=== PATIENT | female | born 1950 | race Caucasian/White ===

== ENCOUNTER → 2016-11-09 | Outpatient (REF) | payer MEDICARE ==
[2016-11-09 11:39] LABS: MEAN CORPUSCULAR HEMOGLOBIN 30.7 pg (27.0-33.0); MEAN CORPUSCULAR HGB CONC 33.7 g/dl (32.0-36.5); MEAN CORPUSCULAR VOLUME 91.2 fl (80.0-96.0); RED CELL DISTRIBUTION WIDTH 13.6 % (11.5-14.5)
[2016-11-09 12:19] LABS: ALBUMIN/GLOBULIN RATIO 1.18 (1.00-1.93); ALKALINE PHOSPHATASE 98 U/L (45-117); ALT/SGPT 22 U/L (12-78); ANION GAP 10 MEQ/L (8-16); AST/SGOT 13 U/L (15-37); BILIRUBIN,TOTAL 0.8 MG/DL (0.2-1.0); BLOOD UREA NITROGEN 22 MG/DL (7-18); CALCIUM LEVEL 9.2 MG/DL (8.8-10.2); CARBON DIOXIDE LEVEL 27 MEQ/L (21-32); CHLORIDE LEVEL 103 MEQ/L (98-107); CHOLESTEROL LEVEL 218 MG/DL (<200); GLOMERULAR FILTRATION RATE > 60.0 (>45); GLUCOSE, FASTING 102 MG/DL (80-110); POTASSIUM SERUM 4.4 MEQ/L (3.5-5.1); SODIUM LEVEL 140 MEQ/L (136-145); TOTAL PROTEIN 7.4 GM/DL (6.4-8.2); TRIGLYCERIDES LEVEL 86 MG/DL (<150)
== END ==
LOC: M SFHCCLAY 08:44
PROVIDERS: ATTEND Nurse Practitioner
DX: K21.9 Gastro-esophageal reflux disease without esophagitis (principal); I15.9 Secondary hypertension, unspecified; E78.5 Hyperlipidemia, unspecified

== ENCOUNTER → 2017-10-11 | Outpatient (CLI) | payer MEDICARE | LOC: M WHC 07:45 | DX: Z12.31 Encounter for screening mammogram for malignant neoplasm of breast (principal) | CPT/HCPCS: 77067 ==

== ENCOUNTER → 2018-04-12 | Outpatient (REF) | payer MEDICARE ==
[2018-04-12 11:57] LABS: HEMATOCRIT 39.4 % (36.0-47.0); HEMOGLOBIN 12.7 g/dl (12.0-15.5); MEAN CORPUSCULAR HEMOGLOBIN 29.7 pg (27.0-33.0); MEAN CORPUSCULAR HGB CONC 32.2 g/dl (32.0-36.5); MEAN CORPUSCULAR VOLUME 92.3 fl (80.0-96.0); PLATELET COUNT, AUTOMATED 258 10^3/uL (150-450); RED BLOOD COUNT 4.27 10^6/uL (4.00-5.40); RED CELL DISTRIBUTION WIDTH 13.9 % (11.5-14.5); WHITE BLOOD COUNT 7.5 10^3/uL (4.0-10.0)
[2018-04-12 12:11] LABS: ALBUMIN 3.9 GM/DL (3.2-5.2); ALBUMIN/GLOBULIN RATIO 1.26 (1.00-1.93); ALKALINE PHOSPHATASE 92 U/L (45-117); ALT/SGPT 17 U/L (12-78); ANION GAP 7 MEQ/L (8-16); AST/SGOT 12 U/L (7-37); BILIRUBIN,TOTAL 0.5 MG/DL (0.2-1.0); BLOOD UREA NITROGEN 15 MG/DL (7-18); CARBON DIOXIDE LEVEL 28 MEQ/L (21-32); CHLORIDE LEVEL 107 MEQ/L (98-107); CHOLESTEROL LEVEL 189 MG/DL (<200); CHOLESTEROL RISK RATIO 2.739 (<5); CREATININE FOR GFR 0.78 MG/DL (0.55-1.30); GLOMERULAR FILTRATION RATE > 60.0 (>39); GLUCOSE, FASTING 95 MG/DL (70-100); HDL CHOLESTEROL 69 MG/DL (>40); LDL CHOLESTEROL 99 MG/DL (<100); NON-HDL-C 120 MG/DL; POTASSIUM SERUM 4.2 MEQ/L (3.5-5.1); SODIUM LEVEL 142 MEQ/L (136-145); TRIGLYCERIDES LEVEL 106 MG/DL (<150)
== END ==
LOC: M SFHCCLAY 08:08
DX: K21.9 Gastro-esophageal reflux disease without esophagitis (principal); E78.5 Hyperlipidemia, unspecified
CPT/HCPCS: 80053

== ENCOUNTER → 2018-10-25 | Outpatient (REF) | payer MEDICARE ==
[2018-10-25 12:40] LABS: BASO % 0.4 % (0.0-1.0); EOS # 0.1 10^3/uL (0.0-0.50); EOS % 1.6 % (0.0-3.0); HEMATOCRIT 40.2 % (36.0-47.0); LYMPH # 1.9 10^3/uL (1.5-4.5); LYMPH % 25.5 % (24.0-44.0); MEAN CORPUSCULAR HEMOGLOBIN 29.3 pg (27.0-33.0); MEAN CORPUSCULAR HGB CONC 32.3 g/dl (32.0-36.5); MEAN CORPUSCULAR VOLUME 90.5 fl (80.0-96.0); MONO # 0.6 10^3/uL (0.0-0.8); MONO % 8.4 % (0.0-5.0); NEUTROPHILS # 4.7 10^3/uL (1.8-7.7); NEUTROPHILS % 63.8 % (36.0-66.0); PLATELET COUNT, AUTOMATED 237 10^3/uL (150-450); RED BLOOD COUNT 4.44 10^6/uL (4.00-5.40); WHITE BLOOD COUNT 7.4 10^3/uL (4.0-10.0)
[2018-10-25 13:17] LABS: ALBUMIN 3.9 GM/DL (3.2-5.2); CALCIUM LEVEL 9.3 MG/DL (8.8-10.2); CHOLESTEROL RISK RATIO 2.617 (<5); FREE T4 1.1 NG/DL (0.76-1.46); GLOMERULAR FILTRATION RATE 58.4 (>39); POTASSIUM SERUM 4.3 MEQ/L (3.5-5.1); THYROID STIMULATING HORMONE 1.55 uIU/ML (0.358-3.740); TOTAL PROTEIN 7.6 GM/DL (6.4-8.2)
== END ==
LOC: M SFHCCLAY 08:19
PROVIDERS: ATTEND Nurse Practitioner Family
DX: E78.5 Hyperlipidemia, unspecified (principal); I10 Essential (primary) hypertension; G43.909 Migraine, unspecified, not intractable, without status migrainosus

== ENCOUNTER → 2019-05-02 | Outpatient (REF) | payer MEDICARE ==
[2019-05-02 16:54] LABS: BLOOD UREA NITROGEN 20 MG/DL (7-18); CALCIUM LEVEL 9.8 MG/DL (8.8-10.2); CARBON DIOXIDE LEVEL 30 MEQ/L (21-32); CHLORIDE LEVEL 105 MEQ/L (98-107); CREATININE FOR GFR 0.92 MG/DL (0.55-1.30); GLOMERULAR FILTRATION RATE > 60.0 (>39); GLUCOSE, FASTING 96 MG/DL (70-100); POTASSIUM SERUM 4.5 MEQ/L (3.5-5.1); SODIUM LEVEL 139 MEQ/L (136-145)
== END ==
LOC: M SFHCCLAY 09:09
PROVIDERS: ATTEND Family Medicine
DX: I11.9 Hypertensive heart disease without heart failure (principal)
CPT/HCPCS: 80048; G0463

== ENCOUNTER → 2019-11-28 | Outpatient (REF) | payer MEDICARE ==
[2019-11-28 14:07] LABS: ALT/SGPT 23 U/L (12-78); BILIRUBIN,TOTAL 0.8 MG/DL (0.2-1.0); BLOOD UREA NITROGEN 21 MG/DL (7-18); CALCIUM LEVEL 9.3 MG/DL (8.8-10.2); CARBON DIOXIDE LEVEL 26 MEQ/L (21-32); CHLORIDE LEVEL 106 MEQ/L (98-107); CHOLESTEROL LEVEL 172 MG/DL (<200); CHOLESTEROL RISK RATIO 2.687 (<5); CREATININE FOR GFR 0.82 MG/DL (0.55-1.30); FREE T4 1.02 NG/DL (0.76-1.46); GLOMERULAR FILTRATION RATE > 60.0 (>39); GLUCOSE, FASTING 105 MG/DL (70-100); HDL CHOLESTEROL 64 MG/DL (>40); LDL CHOLESTEROL 85 MG/DL (<100); NON-HDL-C 108 MG/DL; POTASSIUM SERUM 4.5 MEQ/L (3.5-5.1); SODIUM LEVEL 140 MEQ/L (136-145); TOTAL PROTEIN 7.3 GM/DL (6.4-8.2); TRIGLYCERIDES LEVEL 116 MG/DL (<150)
== END ==
LOC: M SFHCCLAY 07:56
PROVIDERS: ATTEND Nurse Practitioner Family
DX: I11.9 Hypertensive heart disease without heart failure (principal); K21.9 Gastro-esophageal reflux disease without esophagitis; E78.5 Hyperlipidemia, unspecified

== ENCOUNTER → 2019-12-31 | Outpatient (CLI) | payer MEDICARE ==
[~2019-12-31] MED LIST: ACET-897 PO; ASPI81CH33 PO; ASPI81TA86 PO; ATOR40TA75 PO; LISI-538 PO; ROXI1TAB2 PO; STROTAB3 PO; TAGA200T3 PO
--- NOTE | 2020-01-01 07:27 | REP ---
.BILATERAL MAMMOGRAM WITH 3D TOMOSYNTHESIS: No family history of breast cancer. [facility] lifetime risk of breast cancer 4.8%. COMPARISON: 10/11/2017, as well as other prior exams. MLO and CC views of both breasts performed. There is moderate fibroglandular tissue present throughout the left breast with mild scattered fibroglandular tissue throughout the right breast. On tomographic images, there appears to be a spiculated nodule laterally and somewhat inferiorly, slightly less than 1 cm in diameter. There is localized architectural distortion in that region. No other mass is seen bilaterally. No suspicious clusters of microcalcifications are seen. IMPRESSION: ACR 0, incomplete. Focal spiculated nodule and architectural distortion is suspected in the inferolateral left breast. Recommend spot compression views and ultrasound to further evaluate. BIRADS 0: BI-RADS/ACR category 0 mammogram, Incomplete: Need additional imaging evaluation and/or prior mammograms for comparison. This mammogram was interpreted with the aid of an FDA-approved computer-aided detection system. The patient states that she or he has not had a clinical breast exam in over a year. The patient letter being requested is M0.
== END ==
LOC: M WHC 12:52
PROVIDERS: ATTEND Nurse Practitioner Family
DX: N92.2 Excessive menstruation at puberty (principal)

== ENCOUNTER → 2020-02-11 | Outpatient (CLI) | payer MEDICARE ==
--- NOTE | 2020-03-20 13:15 | REP ---
DIGITAL DIAGNOSTIC LEFT BREAST MAMMOGRAM WITH CAD, 3D TOMOGRAPHY, AND FOCUSED LEFT BREAST SONOGRAPHY HISTORY: Screening mammogram 12/31/2019 was BI-RADS Category 0 because of an area of architectural distortion in the left lateral breast. Diagnostic imaging was recommended. COMPARISON: Prior mammography from 06/12/2018 and 12/07/2015. MAMMOGRAPHIC FINDINGS: Magnified focal spot compression CC, true medial lateral, and medial lateral oblique views of the left breast are obtained. In addition, an unmagnified true medial lateral view with tomography is obtained. These confirm the presence of a focal area of architectural distortion persisting in the left lateral breast at approximately 3 o'clock. Breast parenchyma is somewhat heterogeneously dense as previously noted. No mass lesion is visible. No microcalcification is observed. SONOGRAPHIC FINDINGS: Focused left breast sonography is performed in the left lateral breast at approximately 3 o'clock. A hypoechoic irregular spiculated mass lesion is seen in this location 3 cm from the nipple, which is felt to account for the architectural distortion. This measures 10 x 6 x 7 mm and has acoustic shadowing. It is taller than wide. It is considered suspicious. IMPRESSION: BI-RADS Category 4 suspicious left breast imaging. Ultrasound-guided needle biopsy with marker clip placement and post clip placement mammography recommended. This mammogram is interpreted with the aid of an FDA approved computer-aided detection system. PATIENT LETTER: Tayla. MAR
== END ==
LOC: M WHC 16:20
PROVIDERS: ATTEND Nurse Practitioner Family
DX: R92.2 Inconclusive mammogram (principal)
CPT/HCPCS: 76642; 77065; G0279

== ENCOUNTER → 2020-02-26 | Outpatient (CLI) | payer MEDICARE ==
[2020-02-26 16:44] VITALS: BP 138/78
--- NOTE | 2020-02-27 05:36 | ROOPDOC ---
[facility] Report Of Operation Report of Operation DATE OF PROCEDURE: 02/26/20 PREPROCEDURE DIAGNOSES: left breast suspicious lesion POSTPROCEDURE DIAGNOSES: same PROCEDURE: US guided left breast biopsy with clip placement SURGEON: Elizabeth Rabago MACHINE STUFFER: ANESTHESIA: local ESTIMATED BLOOD LOSS: minimal COMPLICATIONS: none REMARKS: post bx clip is seen in expected location DESCRIPTION OF PROCEDURE: Lidocaine 1% LOT [id number] Expiration 11/2022 Sodium Bicarbonate 8.4% LOT [id number] Expiration 11/2020 Hydromark clip LOT [id number] Expiration 10/2022 SHAPE 4 Bx device: BARD [id number] x10 cm LOT [id number] Expiration 10/2022 Informed consent was obtained. The most common risk and possible complications including bleeding, hematoma, bruising, infection, injury to surrounding structures were explained to the patient and she expressed understanding. Patient was placed on the bed in the supine position. Appropriate time out was done stating patients name, date of , and the procedure to be performed. The left breast was prepped and draped in the usual fashion. The ultrasound was used to confirm the location of the lesion in the left breast at 3:00. Plain Lidocaine 1% and 8.4% sodium bicarbonate 10:1 mix was used to anesthetize the skin, the biopsy site and tissues along the anticipated biopsy tract. Small skin incision was made with blade number 11. BARD Marquee 14G cannula with introducer ([id number]) was inserted through the incision and advanced under the ultrasound guidance to position immediately adjacent to the lesion. Next, the introducer was removed and BARD Marquee 14G biopsy device was places in the cannula. Pre-biopsy imaging, and post-biopsy imaging were captured. Five good core biopsies were taken at various levels of the lesion. Specimen was placed in formaldehyde, labeled with appropriate biopsy site and patients name, and sent to pathology for evaluation. Next, the biopsy device was withdrawn and a clip introducer was inserted into the biopsy site via the cannula. The SHAPE 4 Hydromark clip was deployed under sonographic guidance. Post-clip placement image was captured. Manual pressure over the biopsy cavity and tract was held after the clip introducer was withdrawn. No bleeding was noted upon removal of the pressure. Post-biopsy mammogram of the left breast was obtained and showed clip in expected position. Postprocedural dressing was placed. Patient tolerated procedure well. Discharge instructions were discussed with the patient and she expressed understanding. ELIZABETH RABAGO DO Feb 27, 2020 05:36
--- NOTE | 2020-03-24 13:44 | REP ---
POST-BIOPSY MAMMOGRAM, LEFT BREAST TECHNIQUE: Following ultrasound-guided biopsy of a spiculated solid nodule in the outer left breast, left breast mammogram is performed in the ML and CC projections. FINDINGS: The deployed biopsy clip is seen at the posterior margin of the spiculated nodule. MTDD
--- NOTE | 2020-03-24 13:45 | REP ---
ULTRASOUND GUIDANCE FOR LEFT BREAST BIOPSY TECHNIQUE: Ultrasound guidance was provided for Dr. Sotelo who performed ultrasound-guided biopsy of a spiculated nodule in the lateral left breast. FINDINGS: On the obtained images, the biopsy needle was seen within the suspicious nodule. Post-procedure images show a linear echogenic focus in the nodule likely representing the deployed biopsy clip. MAR
== END ==
LOC: M WHCPRO 14:38
PROVIDERS: ATTEND Surgery
DX: C50.512 Malignant neoplasm of lower-outer quadrant of left female breast (principal)

== ENCOUNTER → 2020-03-18 | Outpatient (CLI) | payer MEDICARE ==
[~2020-03-18] MED LIST changes: +PROHANCE 279.3MG/ML 15ML VIAL As Ordered ONE
--- NOTE | 2020-03-26 17:00 | REP ---
MRI OF THE BREASTS WITH AND WITHOUT CONTRAST HISTORY: Left breast cancer. COMPARISON: Mammogram 12/31/2019 and 02/11/2020. FINDINGS: MRI bilateral breasts performed in the axial, coronal, and sagittal planes prior to and following the intravenous administration of 14 mL ProHance. Images are evaluated in the [employer] software including dynamic post IV gadolinium axial T1 fat sat images, subtraction images, CAD images, color overlay images, and MIP reconstruction images. There is mild diffuse fibroglandular tissue in the right breast with a more moderate degree of fibroglandular tissue in the left breast. I do not see significant cystic change in either breast. Small intramammary lymph node is seen posterolaterally in the right breast. Normal size axillary lymph nodes are present bilaterally. In the left breast in the region of 3 oclock, the site of the biopsy proven cancer is noted with a biopsy clip surrounded by a tiny amount of fluid. The biopsy was performed 02/26/2020. On post contrast images, there is some mild persistent enhancement at this site. Otherwise there is no other evidence of an enhancing mass or morphologic abnormality in either breast. There is mild background parenchymal enhancement. IMPRESSION: BI-RADS category 6 known left breast cancer. Recent ultrasound guided biopsy of a lesion at the 3 oclock position left breast demonstrates a biopsy clip surrounded by a tiny amount of fluid at the 3 oclock position of the left breast. There is some mild persistent enhancement at that biopsy location. Otherwise there is no other evidence of suspicious enhancing mass or morphologic abnormality bilaterally. [facility]
== END ==
LOC: M RAD 12:15
PROVIDERS: ATTEND Surgery
DX: C50.912 Malignant neoplasm of unspecified site of left female breast (principal)
CPT/HCPCS: A9576; C8908

== ENCOUNTER → 2020-03-30 | Outpatient (CLI) | payer MEDICARE ==
[~2020-03-30] MED LIST changes: -PROHANCE 279.3MG/ML 15ML VIAL As Ordered ONE
--- NOTE | 2020-04-06 18:01 | REP ---
TWO-VIEW CHEST HISTORY: Hypertension. TECHNIQUE: Two views of the chest are performed. FINDINGS: No acute infiltrate. Lungs are clear. Heart is normal in size. Mediastinal silhouette is unremarkable. There are mild degenerative changes of the spine. IMPRESSION: No active pulmonary disease. MTDD
== END ==
LOC: M CLY 12:55
PROVIDERS: ATTEND Nurse Practitioner Family
DX: I10 Essential (primary) hypertension (principal); C50.919 Malignant neoplasm of unspecified site of unspecified female breast

== ENCOUNTER → 2020-03-30 | Outpatient (REF) | payer MEDICARE ==
[2020-03-30 16:13] LABS: BASO % 0.2 % (0.0-1.0); EOS # 0.1 10^3/uL (0.0-0.5); HEMATOCRIT 36.7 % (36.0-47.0); HEMOGLOBIN 11.6 g/dl (12.0-15.5); LYMPH # 2.3 10^3/uL (1.5-5.0); LYMPH % 23.6 % (24.0-44.0); MEAN CORPUSCULAR HEMOGLOBIN 29.4 pg (27.0-33.0); MEAN CORPUSCULAR HGB CONC 31.6 g/dl (32.0-36.5); MEAN CORPUSCULAR VOLUME 92.9 fl (80.0-96.0); MONO # 0.8 10^3/uL (0.0-0.8); MONO % 8.5 % (0.0-5.0); NEUTROPHILS # 6.5 10^3/uL (1.5-8.5); NEUTROPHILS % 65.8 % (36.0-66.0); PLATELET COUNT, AUTOMATED 239 10^3/uL (150-450); RED BLOOD COUNT 3.95 10^6/uL (4.00-5.40); WHITE BLOOD COUNT 9.9 10^3/uL (4.0-10.0)
[2020-03-30 16:41] LABS: ALT/SGPT 22 U/L (12-78); BILIRUBIN,TOTAL 0.5 MG/DL (0.2-1.0); BLOOD UREA NITROGEN 16 MG/DL (7-18); CALCIUM LEVEL 9.3 MG/DL (8.8-10.2); CARBON DIOXIDE LEVEL 31 MEQ/L (21-32); CHLORIDE LEVEL 107 MEQ/L (98-107); CREATININE FOR GFR 0.82 MG/DL (0.55-1.30); GLOMERULAR FILTRATION RATE > 60.0 (>39); GLUCOSE, FASTING 101 MG/DL (70-100); POTASSIUM SERUM 4.2 MEQ/L (3.5-5.1); SODIUM LEVEL 140 MEQ/L (136-145)
== END ==
LOC: M SFHCCLAY 12:49
PROVIDERS: ATTEND Nurse Practitioner Family
DX: C50.919 Malignant neoplasm of unspecified site of unspecified female breast (principal)

== ENCOUNTER → 2020-04-02 | Outpatient (CLI) | payer MEDICARE ==
[~2020-04-02] MED LIST changes: -ACET-897 PO; -ASPI81CH33 PO; +ATOR40TA75; -ATOR40TA75 PO; +LISI-538; -LISI-538 PO
== END ==
LOC: M LABSMTC 12:52
PROVIDERS: ATTEND Anesthesiology
DX: Z01.812 Encounter for preprocedural laboratory examination (principal); Z20.828 Contact with and (suspected) exposure to other viral communicable diseases
CPT/HCPCS: C9803; U0003

== ENCOUNTER 2020-04-07 06:08 | Day surgery (SDC) | payer MEDICARE ==
[~2020-04-07] VITALS: Ht 157.5 cm; Wt 69.4 kg
[~2020-04-07 06:08] MED LIST changes: -ATOR40TA75; +ATOR40TA75 PO; +HEPARIN SOD (PORCINE) 5000UNITS/ML 1ML VIAL/SYRINGE SQ ONE; -LISI-538; +LISI-538 PO; -ROXI1TAB2 PO
[2020-04-07] MEDS ORDERED: CLINDAMYCIN 900 MG in IV 1 EA IV ONE (07:00)
[2020-04-07] MEDS ORDERED: LR 1,000 ML IV ONE (07:00)
[2020-04-07] MEDS ORDERED: HEPARIN SOD (PORCINE) 5000UNITS/ML 1ML VIAL/SYRINGE SQ ONE (07:00)
[2020-04-07] MEDS ORDERED: LIDOCAINE 1% SDV 30ML VIAL As Ordered ONE (07:18)
[2020-04-07] MEDS ORDERED: BUPIVACAINE HCL 0.25% 30ML VIAL As Ordered ONE (07:18)
[2020-04-07] MEDS ORDERED: MIDAZOLAM INJ 2MG/2ML VIAL (J2250 PER 1MG) As Ordered ONE (07:22)
[2020-04-07] MEDS ORDERED: fentaNYL 250 MCG/5 ML INJECTION (J3010) As Ordered ONE (07:22)
[2020-04-07] MEDS ORDERED: propofoL 200 MG/20 ML VIAL As Ordered ONE ×2 (07:22→07:23)
[2020-04-07] MEDS ORDERED: LIDOCAINE 2% 100MG/5ML SDV (FOR ANES.) As Ordered ONE (07:22)
[2020-04-07] MEDS ORDERED: dexameTHASONE 4 MG/ML 1ML VIAL (J1100 PER 1MG) As Ordered ONE (07:22)
[2020-04-07] MEDS ORDERED: ONDANSETRON 4MG/2ML VIAL As Ordered ONE (07:23)
[2020-04-07] MEDS ORDERED: ROCURONIUM BROMIDE 50 MG/5 ML VIAL As Ordered ONE (09:44)
[2020-04-07] MEDS ORDERED: SUCCINYLCHOLINE 100 MG/5 ML SYRINGE (J0330) As Ordered ONE (09:59)
[2020-04-07] MEDS ORDERED: PHENYLephrine HCL 500 MCG/5 ML (100MCG/ML) SYRINGE (J2370) As Ordered ONE (10:28)
[2020-04-07] MEDS ORDERED: ePHEDrine SULFATE 25 MG/5 ML(5MG/ML) SYRINGE As Ordered ONE (10:30)
[2020-04-07] MEDS ORDERED: ACETAMINOPHEN 1000MG 100ML IV BTL (OFIRMEV) (J0131 PER 10MG) As Ordered ONE (12:46)
[2020-04-07] MEDS ORDERED: ONDANSETRON 4MG/2ML VIAL IV PRN (14:00)
[2020-04-07] MEDS ORDERED: oxyCODONE 5MG TAB PO PRN (14:00)
[2020-04-07] MEDS ORDERED: LR 1,000 ML IV SCH (14:00)
[2020-04-07] MEDS ORDERED: HYDROMORPHONE HCL 0.5 MG/ 0.5 ML SYRINGE (J1170 PER 1) IV PRN (14:00)
[2020-04-07] MEDS ORDERED: fentaNYL 100 MCG/2 ML INJECTION (J3010) IV PRN (14:00)
--- NOTE | 2020-04-07 14:13 | POST-OPPD ---
Postoperative Procedure Note Date Of Procedure: Apr 07, 2020 PREOPERATIVE DIAGNOSIS: left breast cancer POSTOPERATIVE DIAGNOSIS: same FINDINGS: clip and the wire were identified in the specimen, 5 sln identified PROCEDURE: left lumpectomy and left SLNBx SURGEON: Augie Rabago ANESTHESIA: general SPECIMENS: left lumpectomy, left lumpectomy margins (deep, inferior, superior, medial, lateral), left axillary lymph nodes #1, #2,#3, #4,#5 ESTIMATED BLOOD LOSS: 5 cc DRAINS: none COMPLICATIONS: none POSTOPERATIVE CONDITION: stable ELIZABETH RABAGO DO Apr 07, 2020 14:13
[2020-04-07] MEDS ORDERED: ROXI1TAB2 PO (14:20)
[2020-04-07 15:50] VITALS: BP 149/71
--- NOTE | 2020-04-07 20:47 | ROOPDOC ---
[facility] Report Of Operation Report of Operation DATE OF PROCEDURE: 04/07/20 PREPROCEDURE DIAGNOSES: left breast cancer POSTPROCEDURE DIAGNOSES: left breast cancer PROCEDURE: Left lumpectomy with ultrasound guided intraop wire placement, left sentinel lymph node biopsy, radiography of the specimen SURGEON: Elizabeth Rabago ANESTHESIA: general ESTIMATED BLOOD LOSS: Approximately 5 mL. COMPLICATIONS: none REMARKS: clip, wire and mass seen on radiography DESCRIPTION OF PROCEDURE: INDICATIONS: Ms. Sandy is a 70-year-old woman who was found to have a suspicious left breast lesion on screening mammogram. This was evaluated with US and sonographic correlate was found. US guided biopsy of the lesion came back as IDC, ER +, OH +, HER-2 negative, grade 2. She opted for breast conservative surgery with sentinel lymph node biopsy on the left. She was medically cleared for surgery by her primary care doctor. Risks and possible complications of surgical procedure including bleeding, infection and injury to surrounding structures were explained to the patient and she wished to proceed. Consent was signed. My initials were placed on the operative site. Subcutaneous injection of 5000 units of heparin was done in Preop. The injection of radioactive tracer was done in radiology department preoperatively. Lymphoscintigraphy imaging was reviewed in preop. DETAILS: Patient was taken to the operating room and placed on the operating room table. A sign in was called stating patients name, date of and the procedure to be done. Preoperative antibiotics were infused. Smooth induction of general anesthesia was done. Patients hands were extended on arm rests. Care was taken not to over extend the arms. Pillow was placed under the knees and a foam was placed under the heels. Sequential compression devices were placed and assured to function correctly. Procedure was started with left breast intraop wire localization. Appropriate time out was done and patients name, date of , and the procedure to be done were confirmed. Left breast was cleaned by me. Intraoperative ultrasound was used to confirm location of the Hydromark clip. Location of the clip was marked on the skin as well. 21 G K[place]ans Breast Lesion Localization Needle was used to place 25 cm wire at the lesion and the clip site. The end of the wire was passed a centimeter deep. The images were captured confirming adequate placement of the localizing wire. [employer] assisted with the wire placement. Next, patients left breast and axilla were prepped and draped in the usual fashion. Care was taken not to displace the wire. Appropriate time out was done again prior second part of the procedure. Patients name, date of , and the procedure to be done were confirmed. Procedure was started with sentinel lymph node biopsy. Neoprobe was used to locate area of maximum intensity of the signal. Local anesthetic using 1% lidocaine and 0.25 % Marcaine 50/50 mix was injected. An incision was made with scalpel number 15 at the inferior aspect of axillary hair line in the left axilla where the maximum signal was identified. The sharp and blunt dissection was continued through the subcutaneous adipose tissue. Clavipectoral fascia was opened. Neoprobe was used to guide the dissection. First sentinel lymph node was identified and excised. The ex-vivo 10 second count was 329. Second sentinel lymph node was identified and excised as well. The ex-vivo 10 second count was 80[address]. Third sentinel lymph node was identified and excised as well. The ex-vivo 10 second count was 3164, Fourth sentinel lymph node was identified and excised as well. The ex-vivo 10 second count was 2028. Fifth sentinel lymph node was identified and excised as well. The ex-vivo 10 second count was 3132. There were a few additional areas of increased signal in the axilla however the signal intensity was below 10% of the signal of the highest ann-marie value. There were no palpable lymph nodes appreciated in the axilla. The specimens were labeled with patients name and sent to pathology. The 10 second count of the background was 107. Adequate hemostasis was assured. Additional local anesthetic was injected into surrounding tissues. Wound was irrigated. Clavipectoral fascia was closed with 3-0 Vicryl interrupted suture. Dermal layer was closed at the end of the case with 3-0 Vicryl and skin was closed with 4-0 Monocryl. Surgical glue was ap plied to the incision at the end of the procedure. Next, our attention was turned toward the left breast. Local anesthetic using 1% lidocaine and 0.25 % Marcaine 50/50 mix was injected at the site of planned periareolar incision. The incision was made with the scalpel. Subcutaneous skin flaps were raised and the guide wire was carefully pulled into the wound. Dissection was carries along the wire until the previously marked on the skin area of target lesion location was encountered. At this point, wider excision of the tissue surrounding the wire was done. The Hydromark clip was identified in the tissue with intraoperative hockey stick ultrasound probe. The end of the wire was identified with palpation. The lumpectomy specimen was carefully removed from the breast keeping its proper orientation and moved to the back table where margins were marked with the surgical inking kit following the standard colors recommendations. Specimen was then placed on the grid and placed in [facility]imen [facility] System. The image revealed the wire, the mammographic mass with spiculations and the Hydromark in the specimen. The specimen was labeled with patients name and left lumpectomy and sent to pathology. Next, six additional margins were taken: deep, inferior, superior, medial, anterior and lateral. All new margins, defined as margin farthest away from lumpectomy cavity, were marked with black ink. Each margin was sent as a separate specimen with appropriate labeling. Wound was thoroughly irrigated. Adequate hemostasis was assured. Additional local anesthetic was injected into surrounding tissues. Clips were placed to chandrika the cavity. space was approximated with 2-0 Vicryl. The dermis was closed with 3-0 Vicryl and skin was closed with 4-0 Monocryl. Surgical glue was placed over the incision. Patient emerged from the anesthesia without any problems. Fluffs were placed over the operative site and patients chest was wrapped snuggly in the SADIA wrap. Sponge and instrument counts were done and were correct. Patient tolerated procedure well and was taken to recovery unit in stable condition. ELIZABETH RABAGO DO Apr 07, 2020 14:14
--- NOTE | 2020-04-10 08:56 | REP ---
FOCUSED LEFT BREAST SONOGRAPHY: FINDINGS: Sonographic guidance is provided to Dr. Sotelo who performed ultrasound guided needle localization procedure in the OR. MAR
--- NOTE | 2020-04-10 13:44 | REP ---
LEFT BREAST LYMPHOSCINTIGRAPHY The procedure was performed by Devi Quick [facility], under the direct supervision of Dr. Jauregui. The images were reviewed with Dr. Jauregui prior to dictation. The risks and benefits of the procedure were explained to the patient and an informed consent was obtained both verbally and written. Directly prior to the start of the procedure, a formal time-out was completed in the procedure room. Using topical antiseptic and sterile technique, 1.017 mCi of Technetium-99m filtered sulfur colloid was injected subdermally in 8 fractioned periareolar injections. Images obtained one hour after injection show ann-marie uptake in the left axillary region. IMPRESSION: Left axillary ann-marie uptake. MTDD
--- NOTE | 2020-04-13 11:20 | REP ---
DATE: 04/07/2020 TIME: 12:14 p.m. SPECIMEN RADIOGRAPHY LEFT BREAST: Single view. HISTORY: Left breast cancer. COMPARISON: Left breast mammography February 26, 2020. FINDINGS: Specimen radiography demonstrates a [place] needle wire localization device within the specimen. The tip of the [place] device is adjacent to a previously placed HydroMARK biopsy marker clip. There is a speculated nodular density adjacent to the [place] device as well within the specimen. IMPRESSION: Specimen radiography demonstrates a speculated nodule and the needle biopsy marker clip. [facility]
[2020-04-29] MEDS ORDERED: ACET-897 PO (13:24)
[2020-04-29] MEDS ORDERED: ASPI81CH33 PO (13:24)
== END 2020-04-07 15:50 | disposition home or self-care (01) ==
LOC: M SDC 06:08
PROVIDERS: ATTEND Surgery
DX: C50.912 Malignant neoplasm of unspecified site of left female breast (principal); E78.5 Hyperlipidemia, unspecified; I10 Essential (primary) hypertension; K21.9 Gastro-esophageal reflux disease without esophagitis; Z17.0 Estrogen receptor positive status [ER+]; Z79.82 Long term (current) use of aspirin; Z79.899 Other long term (current) drug therapy; Z88.0 Allergy status to penicillin; Z88.2 Allergy status to sulfonamides
CPT/HCPCS: 19125; 36415; 38525; 76942; 78195; 86850; 86900; 86901; 88305; 88307; 88342; A9541; J0131; J0330; J1100; J1644; J2250; J2370; J2405; J3010

== ENCOUNTER → 2020-04-23 | Outpatient (CLI) | payer MEDICARE ==
[~2020-04-23] MED LIST changes: +ACET-897 PO; +ASPI81CH33 PO; -HEPARIN SOD (PORCINE) 5000UNITS/ML 1ML VIAL/SYRINGE SQ ONE; +ROXI1TAB2 PO
--- NOTE | 2020-04-23 12:49 | RADONC.CN ---
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 She is s/p lumpectomy and SLNB with Dr. Sotelo on 04/07/20 with a close posterior margin as well as noted close margins of atypical lobular hyperplasia. She is seen for consideration of adjuvant RT. Diagnosis/Treatment History Oncologic History 12/31/19, atypical mammogram with abnormality in left inferolateral breast led to biopsy on 02/26/20 showing ILC grade 2 ER/AK+ HER2-. 03/18/20 EOD MRI without concerning LN. 04/07/20 Lumpectomy with SLNB showing pT1cN0(sn) close posterior margin 0.2mm and close lateral margins to atypical lobular hyperplasia. Breast history: @ 20 Menses @ 9 Menopause @ 52 No HRT No OCP Interval History Feels well. Still some tenderness and swelling of the left breast at the surgical site. No problems with LUE swelling or impaired ROM. Appetite good weight stable. Past Medical History: HTN HPL GERD Past Surgical History: As above Family History: No family history of cancer Social History: Never smoker Non-drinker Retired nurse Allergies / Meds Allergies: Coded Allergies: Penicillins (Verified Allergy, Intermediate, CHILLS, 04/02/20) perfume (Verified Allergy, Mild, SNEEZING, 04/02/20) Sulfa (Sulfonamide Antibiotics) (Verified Allergy, Unknown, rash, 04/02/20) Home Meds Active Scripts Oxycodone HCl (Roxicodone) 5 Mg Tablet, 5 MG PO Q 6HP PRN for pain MDD 4 tabs for 5 Days, #10 TAB Prov:ELIZABETH SOTELO DO 04/07/20 Reported Medications Multivit,Iron,Min 5/Folic Acid (Strovite Forte Caplet) 1 Each Tablet, 1 TAB PO, TAB 04/02/20 Aspirin (Aspir 81) 81 Mg Tablet.dr, 81 MG PO DAILY, #30 TAB 04/02/20 Cimetidine (Tagamet Hb) 200 Mg Tablet, 200 MG PO, TAB 04/02/20 Atorvastatin Calcium (Atorvastatin Calcium) 40 Mg Tablet 04/02/20 Lisinopril (Lisinopril) 20 Mg Tablet 04/02/20 Review of Systems Constitutional: Denies: Chills, Fever, Night Sweats Eyes: Denies: Pain, Vision change HEENT: Denies: Head Aches, Dysphagia, Sore Throat Skin: Denies: Rash, Lesions, Bruising Pulmonary: Denies: Dyspnea, Cough, Pleuritic Chest Pain, Other Symptoms Cardiovascular: Denies: Chest Pain, Palpitations, Edema Gastrointestinal: Denies: Nausea, Vomiting, Abdominal Pain, Diarrhea Genitourinary: Denies: Dysuria, Frequency, Incontinence Hematologic: Denies: Bruising, Petecchia, Enlarged Lymph Nodes Musculoskeletal: Denies: Neck pain, Back pain Neurological: Denies: Weakness, Numbness, Incoordination Psych: Reports: Mood Normal; Denies: Memory Issues, Thoughts of Self Harm Vital Signs Ht 62" Wt 153 lb BMI 28 T 97.2 P 90 RR 18 BP 189/86 O2 98% Pain 0 Fatigue 0 General Exam: Positive: Alert, Cooperative, No Acute Distress Eye Exam: Positive: PERRLA, EOMI ENT EXAM: Positive: Mucous membr. moist/pink, Pharynx Normal Neck Exam: Negative: Thyromegaly, Lymphadenopathy Chest Exam: Positive: Normal air movement; Negative: Rales, Rhonchi, Wheezing Heart Exam: Positive: Rate Normal, Regular Rhythm Breast Exam: Positive: Symmetric Bilaterally, Skin Changes (Eccymosis left lateral breast over surgical site. Tender seroma palpated. Left periareolar incision healing well.); Negative: Lumps or Masses (Negative for masses BL breasts/axillae), Nipple Retraction, Nipple Discharge Abdomen Exam: Positive: Soft; Negative: Tenderness, Mass Extremity Exam: Negative: Edema, Tenderness Skin Exam: Positive: Nl turgor and temperature; Negative: Rash Neuro Exam: Positive: Normal Gait, Normal Speech, Cranial Nerves 3-12 NL Psych Exam: Positive: Mental status NL, Mood NL, Memory Intact Diagnostic and Laboratory Diagnostic Review Radiologic images, relevant labs and pathology reports were personally reviewed and discussed with Ms. Sandy. Assessment and Plan Impression Ms. 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 She is s/p lumpectomy and SLNB with Dr. Sotelo on 04/07/20 with a close posterior margin as well as noted close margins of atypical lobular hyperplasia. She is seen for consideration of adjuvant RT. Stage Stage IA ILC left breast pT1cN0(sn)M0 ER/AK+ HER2- Grade 2 close margins Performance Status ECOG 0 Plan We had an extensive discussion with Ms. Sandy regarding the diagnosis at hand and available therapeutic options. She has a lobular cancer which was excised with close margins to tumor posteriorly and to ALH laterally. Given these factors I recommend WBI 40 Gy in 15 fractions followed by 10 Gy in 5 fraction tumor bed boost, rather than PBI or omission. She does intend to take an AI and has an appointment with medical oncology upcoming. Anatomically I think supine treatment will be most appropriate for her. We should be able to limit heart and lung doses to accepted standards without the need for breath hold or other special techniques. The tumor bed seems somewhat superficial to the skin, therefore electrons may be appropriate for the boost phase. Will be determined once scanned for planning. We discussed the logistics of receiving radiation therapy in detail including the need for a 1-time planning session. She is still healing from her recent surgery, thus I will not shanks to simulate her, anytime in the next 1-2 weeks would be alright for planning. We reviewed the anticipated side effects of treatment including fatigue, skin reaction and late fibrosis. After discussing the risks, benefits and alternatives to radiation therapy, Ms. Sandy was amenable to pursuing radiotherapy. All questions were answered to the patient's satisfaction. We instructed the patient that if there were any questions,concerns or changes in clinical status in the interim to contact us. Recommendations Left WBI 40 Gy in 15 fractions + 10 Gy in 5 fraction tumor bed boost Simulation in next 1-2 weeks Defer AI start until after RT ADOLFO GILL MD Apr 23, 2020 12:49
== END ==
LOC: M ONCR 09:40
PROVIDERS: ATTEND General Practice
DX: C50.919 Malignant neoplasm of unspecified site of unspecified female breast (principal)

== ENCOUNTER → 2020-05-07 | Outpatient (CLI) | payer MEDICARE ==
--- NOTE | 2020-05-07 15:31 | DEXA ---
INDICATION: BREAST CA, ON AI. COMPARISON: None. TECHNIQUE: Bone density was measured using dual-energy x-ray absorptionmetry (DEXA). FINDINGS: AP SPINE L1-L4 BMD 1.721 g/cm2 Young Adult T-Score 4.2 Age Matched Z-Score 6.0. LT FEMUR, TOTAL BMD 0.954 g/cm2 Young Adult T-Score -0.4 Age Matched Z-Score 1.1. LT NECK BMD 0.853 g/cm2 Young Adult T-Score -1.3 Age Matched Z-Score 0.5. RT FEMUR, TOTAL BMD 0.996 g/cm2 Young Adult T-Score -0.1 Age Matched Z-Score 1.5. RT NECK BMD 0.909 g/cm2 Young Adult T-Score -0.9 Age Matched Z-Score 0.9. IMPRESSION: There is normal bone density of the spine. There is low bone density of the left hip. There is normal bone density of the right hip. FOLLOW-UP: Recommendation for the next bone density exam: 2 years. <Electronically signed by Blake Jauregui > 05/07/20 0211
== END ==
LOC: M WHC 12:38
PROVIDERS: ATTEND Internal Medicine Hematology & Oncology
DX: M85.852 Other specified disorders of bone density and structure, left thigh (principal); C50.919 Malignant neoplasm of unspecified site of unspecified female breast

== ENCOUNTER → 2020-05-25 | Outpatient (RCR) | payer MEDICARE | LOC: M ONCR 05-05 10:14 | PROVIDERS: ATTEND General Practice | DX: C50.512 Malignant neoplasm of lower-outer quadrant of left female breast (principal) ==

== ENCOUNTER 2020-06-17 13:55 | Outpatient (RCR) | payer MEDICARE ==
[~2020-06-17 13:55] MED LIST changes: +ANAS1TAB2 PO; +CALC1TAB63 PO; +SODIUM CHLORIDE 0.9% INJ 10 ML SYR IV PRN
== END 2020-06-25 ==
LOC: M ONCR 13:55
PROVIDERS: ATTEND General Practice
DX: C50.512 Malignant neoplasm of lower-outer quadrant of left female breast (principal)

== ENCOUNTER → 2020-08-05 | Outpatient (REF) | payer MEDICARE ==
[~2020-08-05] MED LIST changes: -LISI-538 PO; +LISI20TA33 PO; -SODIUM CHLORIDE 0.9% INJ 10 ML SYR IV PRN
[2020-08-06 12:07] LABS: BLOOD UREA NITROGEN 16 MG/DL (7-18); CALCIUM LEVEL 9.7 MG/DL (8.8-10.2); CARBON DIOXIDE LEVEL 28 MEQ/L (21-32); CHLORIDE LEVEL 103 MEQ/L (98-107); CREATININE FOR GFR 0.84 MG/DL (0.55-1.30); GLOMERULAR FILTRATION RATE > 60.0 (>39); GLUCOSE, FASTING 91 MG/DL (70-100); POTASSIUM SERUM 4.8 MEQ/L (3.5-5.1); SODIUM LEVEL 138 MEQ/L (136-145)
== END ==
LOC: M SFHCCLAY 15:06
PROVIDERS: ATTEND Family Medicine
DX: I11.9 Hypertensive heart disease without heart failure (principal)
CPT/HCPCS: 80048; G0442; G0444

== ENCOUNTER → 2020-12-16 | Outpatient (CLI) | payer MEDICARE ==
[~2020-12-16] MED LIST changes: +ARIM1TAB5 PO; +COVI100V IM
--- NOTE | 2020-12-16 16:37 | RADONC ---
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 She is s/p lumpectomy and SLNB with Dr. Sotelo on 04/07/20 with a close posterior margin as well as noted close margins of atypical lobular hyperplasia. She completed adjuvant WBI 40 Gy in 15 fractions plus an additional 10 Gy in 5 fractions to the tumor bed on 06/17/20. Diagnosis/Treatment History Oncologic History 12/31/19, atypical mammogram with abnormality in left inferolateral breast led to biopsy on 02/26/20 showing ILC grade 2 ER/NE+ HER2-. 03/18/20 EOD MRI without concerning LN. 04/07/20 Lumpectomy with SLNB showing pT1cN0(sn) close posterior margin 0.2mm and close lateral margins to atypical lobular hyperplasia. 0-06/17/20 Adjuvant RT WBI 40 Gy in 15 fractions plus an additional 10 Gy in 5 fractions to the tumor bed. Started AI June 2020. Survivorship Test Due Next Last result Notes TSH, T4* 6m post-tx, then q1y N/A Carotid US* q10 y post-tx N/A Smoking cessation Assess annually if applicable N/A Screening CT chest q1y if eligible per USPSTF N/A Mammograms Min q1y, if breast conservation Summer/Fall 2020 CBC,CMP, Lipids q1y 2 DEXA q2y if on AI Per medical oncology WNL 2019 Interval History Feels well. Tolerating anastrozole. Has some ongoing tightness under the left arm at axillary scar site. No pain. Full ROM in arm. No skin complaints whatsoever. Mammograms to be done in the next month or so. 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 Allergies / Meds Allergies: Coded Allergies: Penicillins (Verified Allergy, Intermediate, CHILLS, 04/02/20) perfume (Verified Allergy, Mild, SNEEZING, 04/02/20) Sulfa (Sulfonamide Antibiotics) (Verified Allergy, Unknown, rash, 04/02/20) Home Meds Active Scripts Anastrozole (Anastrozole) 1 Mg Tablet, 1 TAB PO DAILY for 30 Days, #30 TAB 5 Refills Prov:ANIRUDH RAO MD 12/02/20 Calcium Carbonate/Vitamin D3 (Calcium 600-Vit D3 400 Tablet) 1 Each Tablet, 2 TAB PO DAILY for 90 Days, #180 TAB 3 Refills Prov:HANNA KNIGHT MDFRCP 11/24/20 Anastrozole (Arimidex) 1 Mg Tablet, 1 MG PO AC for 90 Days, #90 TAB one daily Prov:HANNA KNIGHT MDFRCP 11/24/20 Reported Medications Covid-19 Vacc,Mrna(Moderna)/Pf (Moderna Covid19 Vacc(Unapprov)) 100 Mcg/0.5 Ml Vial, 100 MCG IM, VIAL 11/24/20 Acetaminophen (Tylenol Extra Strength) 500 Mg Tablet, 2 TAB PO, TAB 04/29/20 Aspirin (Aspirin) 81 Mg Tab.chew, 1 TAB PO DAILY for 30 Days, #30 TAB 04/29/20 Multivit,Iron,Min 5/Folic Acid (Strovite Forte Caplet) 1 Each Tablet, 1 TAB PO DAILY, TAB 04/02/20 Cimetidine (Tagamet Hb) 200 Mg Tablet, 200 MG PO PRN PRN for HEARTBURN, TAB 04/02/20 Atorvastatin Calcium (Atorvastatin Calcium) 40 Mg Tablet, 1 TAB PO DAILY 04/02/20 Lisinopril (Lisinopril) 20 Mg Tablet, 1 TAB PO DAILY 04/02/20 Review of Systems Review of Systems Constitutional: Denies: Fever, Fatigue, Weight Loss Eyes: Denies: Pain HEENT: Denies: Head Aches Skin: Denies: Rash Breast: Denies: New Breast Lumps / Masses, Nipple Retraction, Nipple Discharge, Breast Skin Changes, Breast Pain or Tenderness, Other Breast Complaints Pulmonary: Denies: Dyspnea Cardiovascular: Denies: Chest Pain Gastrointestinal: Denies: Nausea, Abdominal Pain Musculoskeletal: Denies: Arm pain Neurological: Denies: Weakness, Numbness Psych: Reports: Mood Normal Physical Examination Vital Signs Wt 146 lbs T 98.2 P 77 RR 16 BP 156/78 O2 99% Pain 0 Fatigue 1 General Exam: Positive: Alert, Cooperative, No Acute Distress Eye Exam: Positive: PERRLA, EOMI ENT EXAM: Positive: Atraumatic Neck Exam: Positive: Supple; Negative: Lymphadenopathy Chest Exam: Positive: Clear to auscultation, Normal air movement Heart Exam: Positive: Rate Normal Breast Exam: Positive: Symmetric Bilaterally (Mild ptosis, small left lateral breast surgical site/fibrosis palpable. No discernible pigmentation changes or telangiectasias. RT tattoo medial to nipple on left); Negative: Lumps or Masses, Nipple Retraction, Nipple Discharge, Skin Changes, Other Breast Findings Abdomen Exam: Positive: Soft Extremity Exam: Negative: Edema Skin Exam: Positive: Nl turgor and temperature Neuro Exam: Positive: Normal Gait, Normal Speech, Cranial Nerves 3-12 NL Psych Exam: Positive: Mental status NL Diagnostic and Laboratory Diagnostic Review Radiologic images, relevant labs and pathology reports were personally reviewed and discussed with Ms. Sandy. Assessment and Plan Impression Assessment Ms. 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 She is s/p lumpectomy and SLNB with Dr. Sotelo on 04/07/20 with a close posterior margin as well as noted close margins of atypical lobular hyperplasia. She completed adjuvant WBI 40 Gy in 15 fractions plus an additional 10 Gy in 5 fractions to the tumor bed on 06/17/20. She is doing well overall. DIDI on exam. No evidence of late effects from RT. She is tolerating AI without any side effects. She is due for a mammogram upcoming, this has been scheduled. Because she is doing so well I will see her in 6 months time, in effort to split follow up with her medical oncologist. Performance Status ECOG 0 Plan Follow up in 6 months Ms. Sandy was encouraged to call with questions or concerns in the interim period. Billing Statement Total time of [25] minutes was spent preparing for the visit [2], obtaining HPI [5], examining the patient [4], reviewing diagnostic tests [1], discussing management options [5], coordinating care [1], and writing this note [7]. ADOLFO GILL MD Dec 16, 2020 16:37
== END ==
LOC: M ONCR 13:50
PROVIDERS: ATTEND General Practice
DX: C50.512 Malignant neoplasm of lower-outer quadrant of left female breast (principal); Z79.82 Long term (current) use of aspirin; Z79.899 Other long term (current) drug therapy; Z88.0 Allergy status to penicillin; Z88.2 Allergy status to sulfonamides; Z91.09 Other allergy status, other than to drugs and biological substances; Z92.3 Personal history of irradiation

== ENCOUNTER → 2021-01-01 | Outpatient (CLI) | payer MEDICARE | LOC: M WHC 08:46 | PROVIDERS: ATTEND Surgery | DX: C50.919 Malignant neoplasm of unspecified site of unspecified female breast (principal); Z91.89 Other specified personal risk factors, not elsewhere classified | CPT/HCPCS: 77066; G0279 ==

== ENCOUNTER → 2021-05-14 | Outpatient (REF) | payer MEDICARE ==
[2021-05-14 16:09] LABS: BASO % 0.3 % (0.0-1.0); EOS # 0.1 10^3/uL (0.0-0.5); EOS % 2.2 % (0.0-3.0); HEMATOCRIT 39.4 % (36.0-47.0); HEMOGLOBIN 12.8 g/dl (12.0-15.5); LYMPH # 1.3 10^3/uL (1.5-5.0); MEAN CORPUSCULAR HEMOGLOBIN 29.7 pg (27.0-33.0); MEAN CORPUSCULAR HGB CONC 32.5 g/dl (32.0-36.5); MEAN CORPUSCULAR VOLUME 91.4 fl (80.0-96.0); MONO # 0.8 10^3/uL (0.0-0.8); MONO % 11.6 % (2.0-8.0); NEUTROPHILS # 4.3 10^3/uL (1.5-8.5); NEUTROPHILS % 65.7 % (36.0-66.0); PLATELET COUNT, AUTOMATED 233 10^3/uL (150-450); RED BLOOD COUNT 4.31 10^6/uL (4.00-5.40); WHITE BLOOD COUNT 6.5 10^3/uL (4.0-10.0)
[2021-05-14 16:38] LABS: ALBUMIN 3.9 GM/DL (3.2-5.2); ALT/SGPT 27 U/L (12-78); BILIRUBIN,TOTAL 0.8 MG/DL (0.2-1.0); BLOOD UREA NITROGEN 24 MG/DL (7-18); CALCIUM LEVEL 9.7 MG/DL (8.8-10.2); CARBON DIOXIDE LEVEL 27 MEQ/L (21-32); CHLORIDE LEVEL 103 MEQ/L (98-107); CREATININE FOR GFR 0.86 MG/DL (0.55-1.30); GLOMERULAR FILTRATION RATE > 60.0 (>39); GLUCOSE, FASTING 91 MG/DL (70-100); POTASSIUM SERUM 4.6 MEQ/L (3.5-5.1); SODIUM LEVEL 136 MEQ/L (136-145); TOTAL PROTEIN 7.2 GM/DL (6.4-8.2)
== END ==
LOC: M LABDRAWC 15:35
PROVIDERS: ATTEND Internal Medicine Hematology & Oncology
DX: C50.912 Malignant neoplasm of unspecified site of left female breast (principal)

== ENCOUNTER → 2021-06-09 | Outpatient (CLI) | payer MEDICARE ==
--- NOTE | 2021-06-09 10:45 | RADONC ---
Radiation Oncology Hx/FUP Radiation Oncology Hx/FUP Date of Service: Jun 09, 2021 Pt Identifier Stephani Sanyd is a 71 year old female seen for a followup visit today at the department of radiation oncology for a history of pT1cN0(sn)M0 ER/ME+ HER2- Grade 2 ILC of the left outer breast. She is s/p lumpectomy and SLNB with Dr. Sotelo on 04/07/20 with a close posterior margin as well as noted close margins of atypical lobular hyperplasia. She completed adjuvant WBI 40 Gy in 15 fractions plus an additional 10 Gy in 5 fractions to the tumor bed on 06/17/20. Diagnosis/Treatment History Oncologic History 12/31/19, atypical mammogram with abnormality in left inferolateral breast led to biopsy on 02/26/20 showing ILC grade 2 ER/ME+ HER2-. 03/18/20 EOD MRI without concerning LN. 04/07/20 Lumpectomy with SLNB showing pT1cN0(sn) close posterior margin 0.2mm and close lateral margins to atypical lobular hyperplasia. -06/17/20 Adjuvant RT WBI 40 Gy in 15 fractions plus an additional 10 Gy in 5 fractions to the tumor bed. Started AI June 2020. Survivorship Test Due Next Last result Notes TSH, T4* 6m post-tx, then q1y N/A Carotid US* q10 y post-tx N/A Smoking cessation Assess annually if applicable N/A Screening CT chest q1y if eligible per USPSTF N/A Mammograms Min q1y, if breast conservation December WNL CBC,CMP, Lipids q1y Per medical oncology DEXA q2y if on AI Per medical oncology WNL 2020 Interval History Stephani feels well. She has preserved appetite and energy. She has some occasional tenderness under the left arm with use, which is not bothersome. She has no pain otherwise. No skin complaints. Has some hot flashes from AI. 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 / Meds Allergies: Coded Allergies: Penicillins (Verified Allergy, Intermediate, CHILLS, 04/02/20) perfume (Verified Allergy, Mild, SNEEZING, 04/02/20) Sulfa (Sulfonamide Antibiotics) (Verified Allergy, Unknown, rash, 04/02/20) Home Meds Active Scripts Calcium Carbonate/Vitamin D3 (Calcium 600-Vit D3 400 Tablet) 1 Each Tablet, 2 TAB PO DAILY for 90 Days, #180 TAB 3 Refills Prov:Shani Andersen MD 05/27/21 Anastrozole (Arimidex) 1 Mg Tablet, 1 MG PO AC for 90 Days, #90 TAB one daily Prov:HANNA KNIGHT MDFRCP 11/24/20 Reported Medications Covid-19 Vacc,Mrna(Moderna)/Pf (Moderna Covid19 Vacc(Unapprov)) 100 Mcg/0.5 Ml Vial, 100 MCG IM, VIAL 11/24/20 Acetaminophen (Tylenol Extra Strength) 500 Mg Tablet, 2 TAB PO, TAB 04/29/20 Aspirin (Aspirin) 81 Mg Tab.chew, 1 TAB PO DAILY for 30 Days, #30 TAB 04/29/20 Multivit,Iron,Min 5/Folic Acid (Strovite Forte Caplet) 1 Each Tablet, 1 TAB PO DAILY, TAB 04/02/20 Cimetidine (Tagamet Hb) 200 Mg Tablet, 200 MG PO PRN PRN for HEARTBURN, TAB 04/02/20 Atorvastatin Calcium (Atorvastatin Calcium) 40 Mg Tablet, 1 TAB PO DAILY 04/02/20 Lisinopril (Lisinopril) 20 Mg Tablet, 1 TAB PO DAILY 04/02/20 Review of Systems Review of Systems Constitutional: Denies: Fatigue, Weight Loss Eyes: Denies: Pain HEENT: Denies: Head Aches Breast: Denies: New Breast Lumps / Masses, Nipple Retraction, Nipple Discharge, Breast Skin Changes, Breast Pain or Tenderness Pulmonary: Denies: Dyspnea Cardiovascular: Denies: Chest Pain, Edema Gastrointestinal: Denies: Abdominal Pain Musculoskeletal: Denies: Neck pain, Back pain Neurological: Denies: Weakness, Numbness Psych: Reports: Mood Normal Physical Examination Vital Signs Wt 138 lbs T 95.3 P 86 RR 16 BP 158/75 O2 96% Pain 0 Fatigue 0 General Exam: Alert, Cooperative, No Acute Distress Eye Exam: PERRLA, EOMI ENT EXAM: Atraumatic, Pharynx Normal Neck Exam: Supple; Negative: Lymphadenopathy Breast Exam: Symmetric Bilaterally; Negative: Lumps or Masses, Nipple Retraction, Nipple Discharge, Skin Changes Abdomen Exam: Soft Extremity Exam: Negative: Edema Skin Exam: Nl turgor and temperature Neuro Exam: Normal Gait, Normal Speech, Cranial Nerves 3-12 NL Psych Exam: Mental status NL Diagnostic and Laboratory Diagnostic Review Radiologic images, relevant labs and pathology reports were personally reviewed and discussed with Ms. Sandy. Assessment and Plan Impression Assessment Ms. 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 She is s/p lumpectomy and SLNB with Dr. Sotelo on 04/07/20 with a close posterior margin as well as noted close margins of atypical lobular hyperplasia. She completed adjuvant WBI 40 Gy in 15 fractions plus an additional 10 Gy in 5 fractions to the tumor bed on 06/17/20. She is doing well and has no evidence of disease on exam today or by mammogram from December 2020. She is 1 year removed from adjuvant RT without any late sequelae of treatment, therefore can continue with q1y follow up in effort to split with medical oncology. Performance Status ECOG 0 Plan Follow up in 12 months Ms. Sandy was encouraged to call with questions or concerns in the interim period. Billing Statement Total time of [25] minutes was spent preparing for the visit [1], obtaining HPI [6], examining the patient [2], reviewing diagnostic tests [2], discussing management options [6], coordinating care [1], and writing this note [7]. ADOLFO GILL MD Jun 09, 2021 10:45
== END ==
LOC: M ONCR 09:14
PROVIDERS: ATTEND General Practice
DX: C50.512 Malignant neoplasm of lower-outer quadrant of left female breast (principal); Z92.3 Personal history of irradiation; Z88.0 Allergy status to penicillin; Z88.2 Allergy status to sulfonamides; Z79.899 Other long term (current) drug therapy

== ENCOUNTER → 2021-07-28 | Outpatient (REF) | payer MEDICARE ==
[2021-07-28 16:01] LABS: BASO % 0.5 % (0.0-1.0); EOS # 0.1 10^3/uL (0.0-0.5); EOS % 1.8 % (0.0-3.0); HEMATOCRIT 37.6 % (36.0-47.0); HEMOGLOBIN 12.3 g/dl (12.0-15.5); LYMPH # 1.5 10^3/uL (1.5-5.0); LYMPH % 23.2 % (24.0-44.0); MEAN CORPUSCULAR HEMOGLOBIN 30.1 pg (27.0-33.0); MEAN CORPUSCULAR HGB CONC 32.7 g/dl (32.0-36.5); MEAN CORPUSCULAR VOLUME 91.9 fl (80.0-96.0); MONO # 0.7 10^3/uL (0.0-0.8); MONO % 10.7 % (2.0-8.0); NEUTROPHILS % 63.6 % (36.0-66.0); PLATELET COUNT, AUTOMATED 224 10^3/uL (150-450); RED BLOOD COUNT 4.09 10^6/uL (4.00-5.40); WHITE BLOOD COUNT 6.2 10^3/uL (4.0-10.0)
[2021-07-28 16:37] LABS: ALBUMIN 3.9 GM/DL (3.2-5.2); ALT/SGPT 28 U/L (12-78); BILIRUBIN,TOTAL 1.2 MG/DL (0.2-1.0); BLOOD UREA NITROGEN 20 MG/DL (7-18); CALCIUM LEVEL 9.8 MG/DL (8.8-10.2); CARBON DIOXIDE LEVEL 27 MEQ/L (21-32); CHLORIDE LEVEL 105 MEQ/L (98-107); CHOLESTEROL LEVEL 177 MG/DL (<200); CHOLESTEROL RISK RATIO 2.391 (<5); CREATININE FOR GFR 0.82 MG/DL (0.55-1.30); FREE T4 1.01 NG/DL (0.76-1.46); GLOMERULAR FILTRATION RATE > 60.0 (>39); GLUCOSE, FASTING 102 MG/DL (70-100); HDL CHOLESTEROL 74 MG/DL (>40); LDL CHOLESTEROL 77 MG/DL (<100); NON-HDL-C 103 MG/DL; POTASSIUM SERUM 4.1 MEQ/L (3.5-5.1); SODIUM LEVEL 140 MEQ/L (136-145); TOTAL PROTEIN 7.2 GM/DL (6.4-8.2); TRIGLYCERIDES LEVEL 131 MG/DL (<150)
== END ==
LOC: M SFHCCLAY 09:43
PROVIDERS: ATTEND Nurse Practitioner Family
DX: C50.919 Malignant neoplasm of unspecified site of unspecified female breast (principal); I10 Essential (primary) hypertension; E78.5 Hyperlipidemia, unspecified

== ENCOUNTER → 2021-08-31 | Outpatient (REF) | payer MEDICARE ==
[2021-08-31 11:33] LABS: BASO % 0.5 % (0.0-1.0); EOS # 0.1 10^3/uL (0.0-0.5); EOS % 1.2 % (0.0-3.0); HEMATOCRIT 38.3 % (36.0-47.0); HEMOGLOBIN 12.6 g/dl (12.0-15.5); LYMPH # 1.3 10^3/uL (1.5-5.0); LYMPH % 21.6 % (24.0-44.0); MEAN CORPUSCULAR HEMOGLOBIN 30.8 pg (27.0-33.0); MEAN CORPUSCULAR HGB CONC 32.9 g/dl (32.0-36.5); MEAN CORPUSCULAR VOLUME 93.6 fl (80.0-96.0); MONO # 0.5 10^3/uL (0.0-0.8); MONO % 8.7 % (2.0-8.0); NEUTROPHILS % 67.7 % (36.0-66.0); PLATELET COUNT, AUTOMATED 222 10^3/uL (150-450); RED BLOOD COUNT 4.09 10^6/uL (4.00-5.40); WHITE BLOOD COUNT 5.8 10^3/uL (4.0-10.0)
[2021-08-31 11:58] LABS: BLOOD UREA NITROGEN 25 MG/DL (7-18); CALCIUM LEVEL 9.3 MG/DL (8.8-10.2); CARBON DIOXIDE LEVEL 29 MEQ/L (21-32); CHLORIDE LEVEL 104 MEQ/L (98-107); CREATININE FOR GFR 0.81 MG/DL (0.55-1.30); GLOMERULAR FILTRATION RATE > 60.0 (>39); GLUCOSE, FASTING 93 MG/DL (70-100); POTASSIUM SERUM 4.9 MEQ/L (3.5-5.1); SODIUM LEVEL 137 MEQ/L (136-145)
== END ==
LOC: M LABDRAWC 11:09
PROVIDERS: ATTEND Internal Medicine Hematology & Oncology
DX: Z85.3 Personal history of malignant neoplasm of breast (principal)

== ENCOUNTER → 2021-09-23 | Outpatient (CLI) | payer MEDICARE | LOC: M RAD 08:42 | PROVIDERS: ATTEND Internal Medicine Hematology & Oncology | DX: R17 Unspecified jaundice (principal); N13.30 Unspecified hydronephrosis ==

== ENCOUNTER → 2021-10-29 | Outpatient (REF) | payer MEDICARE ==
[2021-10-29 14:00] LABS: BASO % 0.4 % (0.0-1.0); EOS # 0.1 10^3/uL (0.0-0.5); EOS % 1.2 % (0.0-3.0); HEMATOCRIT 38.3 % (36.0-47.0); HEMOGLOBIN 12.6 g/dl (12.0-15.5); LYMPH # 1.7 10^3/uL (1.5-5.0); LYMPH % 24.4 % (24.0-44.0); MEAN CORPUSCULAR HEMOGLOBIN 30.9 pg (27.0-33.0); MEAN CORPUSCULAR HGB CONC 32.9 g/dl (32.0-36.5); MEAN CORPUSCULAR VOLUME 93.9 fl (80.0-96.0); MONO # 0.7 10^3/uL (0.0-0.8); MONO % 9.5 % (2.0-8.0); NEUTROPHILS # 4.4 10^3/uL (1.5-8.5); NEUTROPHILS % 64.2 % (36.0-66.0); PLATELET COUNT, AUTOMATED 245 10^3/uL (150-450); RED BLOOD COUNT 4.08 10^6/uL (4.00-5.40); WHITE BLOOD COUNT 6.9 10^3/uL (4.0-10.0)
[2021-10-29 14:11] LABS: ALT/SGPT 21 U/L (12-78); BILIRUBIN,TOTAL 1.2 MG/DL (0.2-1.0); BLOOD UREA NITROGEN 24 MG/DL (7-18); CALCIUM LEVEL 9.5 MG/DL (8.8-10.2); CARBON DIOXIDE LEVEL 30 MEQ/L (21-32); CHLORIDE LEVEL 102 MEQ/L (98-107); CREATININE FOR GFR 0.83 MG/DL (0.55-1.30); GLOMERULAR FILTRATION RATE > 60.0 (>39); GLUCOSE, FASTING 97 MG/DL (70-100); POTASSIUM SERUM 4.7 MEQ/L (3.5-5.1); SODIUM LEVEL 138 MEQ/L (136-145)
== END ==
LOC: M LABDRAWC 11:21 → M LAB REF 11:21
PROVIDERS: ATTEND Internal Medicine Hematology & Oncology
DX: C50.912 Malignant neoplasm of unspecified site of left female breast (principal)

== ENCOUNTER → 2021-12-24 | Outpatient (CLI) | payer MEDICARE | LOC: M WHC 10:28 | PROVIDERS: ATTEND Nurse Practitioner Women's Health | DX: Z98.890 Other specified postprocedural states (principal); N60.92 Unspecified benign mammary dysplasia of left breast; D05.02 Lobular carcinoma in situ of left breast | CPT/HCPCS: 77066; G0279 ==

== ENCOUNTER → 2022-01-26 | Outpatient (REF) | payer MEDICARE ==
[2022-01-26 12:18] LABS: ALBUMIN 3.9 GM/DL (3.2-5.2); BILIRUBIN,TOTAL 1.4 MG/DL (0.2-1.0); CALCIUM LEVEL 10.1 MG/DL (8.8-10.2); CREATININE FOR GFR 0.98 MG/DL (0.55-1.30); GLOMERULAR FILTRATION RATE 59.2 (>39); TOTAL PROTEIN 7.4 GM/DL (6.4-8.2)
[2022-01-26 15:46] LABS: BASO % 0.4 % (0.0-1.0); EOS # 0.1 10^3/uL (0.0-0.5); EOS % 1.3 % (0.0-3.0); HEMATOCRIT 40.3 % (36.0-47.0); HEMOGLOBIN 13.1 g/dl (12.0-15.5); LYMPH # 1.8 10^3/uL (1.5-5.0); LYMPH % 26.4 % (24.0-44.0); MEAN CORPUSCULAR HGB CONC 32.5 g/dl (32.0-36.5); MEAN CORPUSCULAR VOLUME 92.4 fl (80.0-96.0); MONO # 0.8 10^3/uL (0.0-0.8); NEUTROPHILS # 4.2 10^3/uL (1.5-8.5); NEUTROPHILS % 60.6 % (36.0-66.0); PLATELET COUNT, AUTOMATED 266 10^3/uL (150-450); RED BLOOD COUNT 4.36 10^6/uL (4.00-5.40); WHITE BLOOD COUNT 6.9 10^3/uL (4.0-10.0)
== END ==
LOC: M LABDRAWC 11:06
PROVIDERS: ATTEND Internal Medicine Hematology & Oncology
DX: C50.919 Malignant neoplasm of unspecified site of unspecified female breast (principal)

== ENCOUNTER → 2022-06-09 | Outpatient (CLI) | payer MEDICARE | LOC: M ONCR 09:14 | PROVIDERS: ATTEND General Practice | DX: C50.512 Malignant neoplasm of lower-outer quadrant of left female breast (principal); Z79.811 Long term (current) use of aromatase inhibitors; Z79.82 Long term (current) use of aspirin; Z79.899 Other long term (current) drug therapy; Z88.0 Allergy status to penicillin; Z88.2 Allergy status to sulfonamides; Z91.048 Other nonmedicinal substance allergy status; Z92.3 Personal history of irradiation ==

== ENCOUNTER → 2022-08-02 | Outpatient (REF) | payer MEDICARE ==
[2022-08-02 12:04] LABS: BASO % 0.4 % (0.0-1.0); EOS # 0.1 10^3/uL (0.0-0.5); EOS % 1.7 % (0.0-3.0); HEMATOCRIT 38.8 % (36.0-47.0); HEMOGLOBIN 12.5 g/dl (12.0-15.5); LYMPH % 27.7 % (24.0-44.0); MEAN CORPUSCULAR HEMOGLOBIN 30.6 pg (27.0-33.0); MEAN CORPUSCULAR HGB CONC 32.2 g/dl (32.0-36.5); MEAN CORPUSCULAR VOLUME 94.9 fl (80.0-96.0); MONO # 0.7 10^3/uL (0.0-0.8); MONO % 9.3 % (2.0-8.0); NEUTROPHILS # 4.3 10^3/uL (1.5-8.5); NEUTROPHILS % 60.6 % (36.0-66.0); PLATELET COUNT, AUTOMATED 244 10^3/uL (150-450); RED BLOOD COUNT 4.09 10^6/uL (4.00-5.40); WHITE BLOOD COUNT 7.1 10^3/uL (4.0-10.0)
[2022-08-02 12:28] LABS: ALBUMIN 3.8 G/DL (3.2-5.2); ALKALINE PHOSPHATASE 105 U/L (46-116); ALT/SGPT 13 U/L (7.0-40); AST/SGOT 20 U/L (<34); BILIRUBIN,TOTAL 0.8 MG/DL (0.3-1.2); BLOOD UREA NITROGEN 23 MG/DL (9-23); CALCIUM LEVEL 9.6 MG/DL (8.3-10.6); CARBON DIOXIDE LEVEL 28 MMOL/L (20-31); CHLORIDE LEVEL 102 MMOL/L (98-107); CHOLESTEROL LEVEL 180 MG/DL (<200); CHOLESTEROL RISK RATIO 2.53 (<5); CREATININE FOR GFR 0.84 MG/DL (0.55-1.30); GLOMERULAR FILTRATION RATE > 60.0 (>39); GLUCOSE, FASTING 96 MG/DL (74-106); HDL CHOLESTEROL 70.9 MG/DL (>40); LDL CHOLESTEROL 85.3 MG/DL (<100); NON-HDL-C 109 MG/DL; POTASSIUM SERUM 4.7 MMOL/L (3.5-5.1); SODIUM LEVEL 138 MMOL/L (136-145); THYROID STIMULATING HORMONE 2.161 uIU/ML (0.55-4.78); TOTAL PROTEIN 6.9 G/DL (5.7-8.2); TRIGLYCERIDES LEVEL 119 MG/DL (<150)
== END ==
LOC: M SFHCCLAY 08:30
PROVIDERS: ATTEND Nurse Practitioner Family
DX: Z00.00 Encounter for general adult medical examination without abnormal findings (principal); C50.919 Malignant neoplasm of unspecified site of unspecified female breast; I10 Essential (primary) hypertension; E78.5 Hyperlipidemia, unspecified

== ENCOUNTER → 2022-08-17 | Outpatient (CLI) | payer MEDICARE | LOC: M WHC 09:55 | PROVIDERS: ATTEND Internal Medicine Hematology & Oncology | DX: M85.852 Other specified disorders of bone density and structure, left thigh (principal); C50.919 Malignant neoplasm of unspecified site of unspecified female breast ==

== ENCOUNTER → 2022-12-28 | Outpatient (CLI) | payer MEDICARE | LOC: M WHC 12:41 | PROVIDERS: ATTEND Nurse Practitioner Women's Health | DX: C50.912 Malignant neoplasm of unspecified site of left female breast (principal); D05.02 Lobular carcinoma in situ of left breast | CPT/HCPCS: 77066; G0279 ==

== ENCOUNTER → 2023-01-10 | Outpatient (CLI) | payer MEDICARE ==
[2023-01-10 11:52] LABS: BLOOD UREA NITROGEN 24 MG/DL (9-23); CREATININE FOR GFR 0.85 MG/DL (0.55-1.30); GLOMERULAR FILTRATION RATE > 60.0 (>39)
== END ==
LOC: M LAB 10:54
PROVIDERS: ATTEND Otolaryngology
DX: H90.3 Sensorineural hearing loss, bilateral (principal)

== ENCOUNTER → 2023-01-17 | Outpatient (REF) | payer MEDICARE ==
[~2023-01-17] MED LIST changes: +LETR2.5T2 PO
[2023-01-17 11:35] LABS: BASO % 0.1 % (0.0-1.0); EOS # 0.1 10^3/uL (0.0-0.5); EOS % 0.5 % (0.0-3.0); HEMATOCRIT 38.5 % (36.0-47.0); HEMOGLOBIN 12.5 g/dl (12.0-15.5); LYMPH # 2.9 10^3/uL (1.5-5.0); MEAN CORPUSCULAR HEMOGLOBIN 30.3 pg (27.0-33.0); MEAN CORPUSCULAR HGB CONC 32.5 g/dl (32.0-36.5); MEAN CORPUSCULAR VOLUME 93.4 fl (80.0-96.0); MONO # 0.6 10^3/uL (0.0-0.8); MONO % 6.2 % (2.0-8.0); NEUTROPHILS # 6.7 10^3/uL (1.5-8.5); NEUTROPHILS % 64.4 % (36.0-66.0); PLATELET COUNT, AUTOMATED 228 10^3/uL (150-450); RED BLOOD COUNT 4.12 10^6/uL (4.00-5.40); WHITE BLOOD COUNT 10.4 10^3/uL (4.0-10.0)
[2023-01-17 11:52] LABS: ALBUMIN 3.8 G/DL (3.2-5.2); ALKALINE PHOSPHATASE 102 U/L (46-116); ALT/SGPT 20 U/L (7.0-40); AST/SGOT 10 U/L (<34); BILIRUBIN,TOTAL 1.3 MG/DL (0.3-1.2); BLOOD UREA NITROGEN 23 MG/DL (9-23); CALCIUM LEVEL 9.2 MG/DL (8.3-10.6); CARBON DIOXIDE LEVEL 25 MMOL/L (20-31); CHLORIDE LEVEL 105 MMOL/L (98-107); CREATININE FOR GFR 0.84 MG/DL (0.55-1.30); GLOMERULAR FILTRATION RATE > 60.0 (>39); GLUCOSE, FASTING 86 MG/DL (74-106); POTASSIUM SERUM 3.5 MMOL/L (3.5-5.1); SODIUM LEVEL 142 MMOL/L (136-145); TOTAL PROTEIN 6.6 G/DL (5.7-8.2)
== END ==
LOC: M LABDRAWC 11:01
PROVIDERS: ATTEND Internal Medicine Hematology & Oncology
DX: C50.919 Malignant neoplasm of unspecified site of unspecified female breast (principal)

== ENCOUNTER → 2023-07-12 | Outpatient (REF) | payer MEDICARE ==
[2023-07-12 12:25] LABS: BASO % 0.5 % (0.0-1.0); EOS # 0.3 10^3/uL (0.0-0.5); EOS % 4.3 % (0.0-3.0); HEMATOCRIT 37.4 % (36.0-47.0); HEMOGLOBIN 12.2 g/dl (12.0-15.5); LYMPH # 1.7 10^3/uL (1.5-5.0); LYMPH % 22.2 % (24.0-44.0); MEAN CORPUSCULAR HEMOGLOBIN 30.1 pg (27.0-33.0); MEAN CORPUSCULAR HGB CONC 32.6 g/dl (32.0-36.5); MEAN CORPUSCULAR VOLUME 92.3 fl (80.0-96.0); MONO # 0.7 10^3/uL (0.0-0.8); MONO % 9.5 % (2.0-8.0); NEUTROPHILS # 4.8 10^3/uL (1.5-8.5); NEUTROPHILS % 63.2 % (36.0-66.0); PLATELET COUNT, AUTOMATED 279 10^3/uL (150-450); RED BLOOD COUNT 4.05 10^6/uL (4.00-5.40); WHITE BLOOD COUNT 7.7 10^3/uL (4.0-10.0)
[2023-07-12 12:33] LABS: ALBUMIN 3.8 G/DL (3.2-5.2); ALKALINE PHOSPHATASE 107 U/L (46-116); ALT/SGPT 16 U/L (7.0-40); AST/SGOT 15 U/L (<34); BILIRUBIN,TOTAL 0.7 MG/DL (0.3-1.2); BLOOD UREA NITROGEN 21 MG/DL (9-23); CALCIUM LEVEL 9.6 MG/DL (8.3-10.6); CARBON DIOXIDE LEVEL 29 MMOL/L (20-31); CHLORIDE LEVEL 104 MMOL/L (98-107); CREATININE FOR GFR 0.84 MG/DL (0.55-1.30); GLOMERULAR FILTRATION RATE > 60.0 (>39); GLUCOSE, FASTING 103 MG/DL (74-106); POTASSIUM SERUM 4.8 MMOL/L (3.5-5.1); SODIUM LEVEL 139 MMOL/L (136-145); TOTAL PROTEIN 6.7 G/DL (5.7-8.2)
== END ==
LOC: M LABDRAWC 11:47
PROVIDERS: ATTEND Internal Medicine Hematology & Oncology
DX: C50.912 Malignant neoplasm of unspecified site of left female breast (principal)

== ENCOUNTER → 2023-07-21 | Outpatient (CLI) | payer MEDICARE | LOC: M ONCR 08:41 | PROVIDERS: ATTEND General Practice | DX: Z08 Encounter for follow-up examination after completed treatment for malignant neoplasm (principal); I89.0 Lymphedema, not elsewhere classified; H91.93 Unspecified hearing loss, bilateral; Z85.3 Personal history of malignant neoplasm of breast; Z79.82 Long term (current) use of aspirin; Z79.899 Other long term (current) drug therapy; Z88.0 Allergy status to penicillin; Z88.2 Allergy status to sulfonamides; Z91.09 Other allergy status, other than to drugs and biological substances ==

== ENCOUNTER → 2023-08-14 | Outpatient (REF) | payer MEDICARE ==
[2023-08-14 18:00] LABS: HEMATOCRIT 37.5 % (36.0-47.0); HEMOGLOBIN 12.4 g/dl (12.0-15.5); MEAN CORPUSCULAR HEMOGLOBIN 30.1 pg (27.0-33.0); MEAN CORPUSCULAR HGB CONC 33.1 g/dl (32.0-36.5); PLATELET COUNT, AUTOMATED 232 10^3/uL (150-450); RED BLOOD COUNT 4.12 10^6/uL (4.00-5.40); WHITE BLOOD COUNT 8.1 10^3/uL (4.0-10.0)
[2023-08-14 18:22] LABS: THYROID STIMULATING HORMONE 1.435 uIU/ML (0.55-4.78)
[2023-08-14 18:24] LABS: ALBUMIN 3.8 G/DL (3.2-5.2); BILIRUBIN,TOTAL 0.9 MG/DL (0.3-1.2); CALCIUM LEVEL 9.8 MG/DL (8.3-10.6); CHOLESTEROL RISK RATIO 2.6 (<5); CREATININE FOR GFR 1.14 MG/DL (0.55-1.30); GLOMERULAR FILTRATION RATE 49.5 (>39); HDL CHOLESTEROL 65.2 MG/DL (>40); LDL CHOLESTEROL 81.8 MG/DL (<100); NON-HDL-C 104.8 MG/DL; POTASSIUM SERUM 5.4 MMOL/L (3.5-5.1); TOTAL PROTEIN 6.7 G/DL (5.7-8.2)
== END ==
LOC: M SFHCCLAY 10:23
PROVIDERS: ATTEND Nurse Practitioner Family
DX: I10 Essential (primary) hypertension (principal); E78.5 Hyperlipidemia, unspecified

== ENCOUNTER → 2024-01-02 | Outpatient (CLI) | payer MEDICARE | LOC: M WHC 10:51 | PROVIDERS: ATTEND Nurse Practitioner Women's Health | DX: Z12.31 Encounter for screening mammogram for malignant neoplasm of breast (principal); Z85.3 Personal history of malignant neoplasm of breast; D05.02 Lobular carcinoma in situ of left breast; N60.92 Unspecified benign mammary dysplasia of left breast; Z91.89 Other specified personal risk factors, not elsewhere classified | CPT/HCPCS: 77066; G0279 ==

== ENCOUNTER → 2024-01-08 | Outpatient (REF) | payer MEDICARE ==
[2024-01-08 18:55] LABS: BASO % 0.4 % (0.0-1.0); EOS # 0.1 10^3/uL (0.0-0.5); EOS % 0.9 % (0.0-3.0); HEMATOCRIT 38.9 % (36.0-47.0); HEMOGLOBIN 12.7 g/dl (12.0-15.5); LYMPH # 1.4 10^3/uL (1.5-5.0); LYMPH % 19.7 % (24.0-44.0); MEAN CORPUSCULAR HEMOGLOBIN 30.1 pg (27.0-33.0); MEAN CORPUSCULAR HGB CONC 32.6 g/dl (32.0-36.5); MEAN CORPUSCULAR VOLUME 92.2 fl (80.0-96.0); MONO # 0.6 10^3/uL (0.0-0.8); MONO % 8.6 % (2.0-8.0); NEUTROPHILS # 4.9 10^3/uL (1.5-8.5); NEUTROPHILS % 69.8 % (36.0-66.0); PLATELET COUNT, AUTOMATED 240 10^3/uL (150-450); RED BLOOD COUNT 4.22 10^6/uL (4.00-5.40)
[2024-01-08 19:14] LABS: ALKALINE PHOSPHATASE 120 U/L (46-116); ALT/SGPT 18 U/L (7.0-40); AST/SGOT 14 U/L (<34); BILIRUBIN,TOTAL 1.2 MG/DL (0.3-1.2); BLOOD UREA NITROGEN 28 MG/DL (9-23); CALCIUM LEVEL 10.2 MG/DL (8.3-10.6); CARBON DIOXIDE LEVEL 28 MMOL/L (20-31); CHLORIDE LEVEL 104 MMOL/L (98-107); CREATININE FOR GFR 0.91 MG/DL (0.55-1.30); GLOMERULAR FILTRATION RATE > 60.0 (>39); GLUCOSE, FASTING 97 MG/DL (74-106); POTASSIUM SERUM 5.5 MMOL/L (3.5-5.1); SODIUM LEVEL 137 MMOL/L (136-145); TOTAL PROTEIN 6.9 G/DL (5.7-8.2)
== END ==
LOC: M LABDRAWC 17:53
PROVIDERS: ATTEND Internal Medicine Hematology & Oncology
DX: C50.919 Malignant neoplasm of unspecified site of unspecified female breast (principal)

== ENCOUNTER → 2024-07-08 | Outpatient (REF) | payer MEDICARE ==
[2024-07-08 12:22] LABS: ALKALINE PHOSPHATASE 126 U/L (35-104); ALT/SGPT 15 U/L (7.0-40); AST/SGOT 14 U/L (<34); BILIRUBIN,TOTAL 0.9 MG/DL (0.3-1.2); BLOOD UREA NITROGEN 27 MG/DL (9-23); CALCIUM LEVEL 9.8 MG/DL (8.3-10.6); CARBON DIOXIDE LEVEL 27 MMOL/L (20-31); CHLORIDE LEVEL 104 MMOL/L (98-107); CREATININE FOR GFR 0.96 MG/DL (0.55-1.30); GLOMERULAR FILTRATION RATE > 60.0 (>39); GLUCOSE, FASTING 103 MG/DL (74-106); POTASSIUM SERUM 4.4 MMOL/L (3.5-5.1); SODIUM LEVEL 140 MMOL/L (136-145)
[2024-07-08 12:23] LABS: BASO % 0.4 % (0.0-1.0); EOS # 0.2 10^3/uL (0.0-0.5); EOS % 3.1 % (0.0-3.0); HEMATOCRIT 38.6 % (36.0-47.0); HEMOGLOBIN 12.7 g/dl (12.0-15.5); LYMPH # 1.4 10^3/uL (1.5-5.0); LYMPH % 20.1 % (24.0-44.0); MEAN CORPUSCULAR HEMOGLOBIN 30.5 pg (27.0-33.0); MEAN CORPUSCULAR HGB CONC 32.9 g/dl (32.0-36.5); MEAN CORPUSCULAR VOLUME 92.8 fl (80.0-96.0); MONO # 0.6 10^3/uL (0.0-0.8); MONO % 8.4 % (2.0-8.0); NEUTROPHILS # 4.9 10^3/uL (1.5-8.5); NEUTROPHILS % 67.6 % (36.0-66.0); PLATELET COUNT, AUTOMATED 243 10^3/uL (150-450); RED BLOOD COUNT 4.16 10^6/uL (4.00-5.40); WHITE BLOOD COUNT 7.2 10^3/uL (4.0-10.0)
== END ==
LOC: M LABDRAWC 11:23
PROVIDERS: ATTEND Internal Medicine Hematology & Oncology
DX: C50.919 Malignant neoplasm of unspecified site of unspecified female breast (principal)

== ENCOUNTER → 2024-07-23 | Outpatient (CLI) | payer MEDICARE | LOC: M ONCR 08:33 | PROVIDERS: ATTEND General Practice | DX: Z08 Encounter for follow-up examination after completed treatment for malignant neoplasm (principal); Z85.3 Personal history of malignant neoplasm of breast; Z17.411 Hormone receptor positive with human epidermal growth factor receptor 2 negative status; Z92.3 Personal history of irradiation; Z79.811 Long term (current) use of aromatase inhibitors; Z88.0 Allergy status to penicillin; Z88.1 Allergy status to other antibiotic agents; Z88.2 Allergy status to sulfonamides; Z91.048 Other nonmedicinal substance allergy status; Z79.82 Long term (current) use of aspirin; Z79.899 Other long term (current) drug therapy ==

== ENCOUNTER → 2024-08-07 | Outpatient (REF) | payer MEDICARE ==
[2024-08-07 11:33] LABS: BASO % 0.4 % (0.0-1.0); EOS # 0.1 10^3/uL (0.0-0.5); EOS % 1.2 % (0.0-3.0); HEMATOCRIT 38.8 % (36.0-47.0); HEMOGLOBIN 12.7 g/dl (12.0-15.5); LYMPH # 1.3 10^3/uL (1.5-5.0); LYMPH % 17.4 % (24.0-44.0); MEAN CORPUSCULAR HEMOGLOBIN 30.2 pg (27.0-33.0); MEAN CORPUSCULAR HGB CONC 32.7 g/dl (32.0-36.5); MEAN CORPUSCULAR VOLUME 92.4 fl (80.0-96.0); MONO # 0.7 10^3/uL (0.0-0.8); MONO % 9.3 % (2.0-8.0); NEUTROPHILS # 5.2 10^3/uL (1.5-8.5); NEUTROPHILS % 71.3 % (36.0-66.0); PLATELET COUNT, AUTOMATED 254 10^3/uL (150-450); WHITE BLOOD COUNT 7.3 10^3/uL (4.0-10.0)
[2024-08-07 12:04] LABS: ALBUMIN 3.7 G/DL (3.2-5.2); ALKALINE PHOSPHATASE 121 U/L (35-104); ALT/SGPT 16 U/L (7.0-40); AST/SGOT 15 U/L (<34); BLOOD UREA NITROGEN 21 MG/DL (9-23); CALCIUM LEVEL 9.3 MG/DL (8.3-10.6); CARBON DIOXIDE LEVEL 28 MMOL/L (20-31); CHLORIDE LEVEL 102 MMOL/L (98-107); CHOLESTEROL LEVEL 172 MG/DL (<200); CHOLESTEROL RISK RATIO 2.51 (<5); CREATININE FOR GFR 0.84 MG/DL (0.55-1.30); GLOMERULAR FILTRATION RATE > 60.0 (>39); GLUCOSE, FASTING 95 MG/DL (74-106); HDL CHOLESTEROL 68.5 MG/DL (>40); LDL CHOLESTEROL 75.9 MG/DL (<100); NON-HDL-C 103.5 MG/DL; POTASSIUM SERUM 4.8 MMOL/L (3.5-5.1); SODIUM LEVEL 140 MMOL/L (136-145); TOTAL PROTEIN 6.9 G/DL (5.7-8.2); TRIGLYCERIDES LEVEL 138 MG/DL (<150)
[2024-08-07 12:05] LABS: FREE T4 1.21 NG/DL (0.89-1.76); THYROID STIMULATING HORMONE 1.124 uIU/ML (0.55-4.78)
[2024-08-07 12:06] LABS: HEMOGLOBIN A1c 5.3 % (4.0-6.0)
== END ==
LOC: M SFHCCLAY 09:19
PROVIDERS: ATTEND Nurse Practitioner Family
DX: Z00.00 Encounter for general adult medical examination without abnormal findings (principal); C50.919 Malignant neoplasm of unspecified site of unspecified female breast; I10 Essential (primary) hypertension; E78.5 Hyperlipidemia, unspecified; Z13.1 Encounter for screening for diabetes mellitus

== ENCOUNTER → 2025-01-21 | Outpatient (REF) | payer MEDICARE ==
[2025-01-21 12:44] LABS: BASO # 0.0 10^3/uL (0.0-0.2); BASO % 0.3 % (0.0-1.0); EOS # 0.0 10^3/uL (0.0-0.5); EOS % 0.5 % (0.0-3.0); LYMPH # 1.0 10^3/uL (1.5-5.0); LYMPH % 17.4 % (24.0-44.0); MONO # 0.5 10^3/uL (0.0-0.8); MONO % 8.2 % (2.0-8.0); NEUTROPHILS # 4.4 10^3/uL (1.5-8.5); NEUTROPHILS % 73.3 % (36.0-66.0); PLATELET COUNT, AUTOMATED 251 10^3/uL (150-450)
[2025-01-21 12:47] LABS: ALT/SGPT 16.0 U/L (7.0-40); AST/SGOT 19.0 U/L (<34); CALCIUM LEVEL 9.1 MG/DL (8.3-10.6); CARBON DIOXIDE LEVEL 25.0 MMOL/L (20-31); CHLORIDE LEVEL 102.0 MMOL/L (98-107); CREATININE FOR GFR 0.82 MG/DL (0.55-1.30); GLOMERULAR FILTRATION RATE 74.1 (>39); POTASSIUM SERUM 4.0 MMOL/L (3.5-5.1); SODIUM LEVEL 139.0 MMOL/L (136-145)
[2025-01-21 13:04] LABS: CA15-3 ANTIGEN 27.7 U/ML (<32.4)
== END ==
LOC: M LABDRAWC 12:10
PROVIDERS: ATTEND Internal Medicine Hematology & Oncology
DX: C50.919 Malignant neoplasm of unspecified site of unspecified female breast (principal)